=== PATIENT | female | born 2005 | race Caucasian/White ===

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

== ENCOUNTER 2024-01-04 16:58 | Emergency (ER) | payer SELFPAY ==
[2024-01-04] MEDS: Haloperidol Lactate 5 MG/ML SDV IM ONE (17:52)
[2024-01-04 18:28] LABS: BASOPHILS ABSOLUTE AUTO 0.04 K/uL (0.00-0.20); BASOPHILS PERCENT AUTO 0.5 % (0.0-1.0); EOSINOPHILS ABSOLUTE AUTO 0.02 K/uL (0.00-0.45); EOSINOPHILS PERCENT AUTO 0.3 % (0.0-6.0); HEMATOCRIT 32.6 % (37.0-47.0); HEMOGLOBIN 9.9 g/dL (12.0-16.0); IMMATURE GRAN ABSOLUTE AUTO 0.03 K/uL (0.00-0.05); IMMATURE GRAN PERCENT AUTO 0.4 % (0.0-0.4); LYMPHOCYTES ABSOLUTE AUTO 1.09 K/uL (1.00-4.80); LYMPHOCYTES PERCENT AUTO 14.6 % (24.0-44.0); MEAN CORPUSCULAR HEMOGLOBIN 21.4 pg (28.0-32.0); MEAN CORPUSCULAR HGB CONC 30.4 g/dL (32.0-36.0); MEAN CORPUSCULAR VOLUME 70.4 fL (83.0-99.0); MEAN PLATELET VOLUME 9.9 fL (9.4-12.3); MONOCYTES ABSOLUTE AUTO 0.61 K/uL (0.00-0.80); MONOCYTES PERCENT AUTO 8.2 % (0.0-8.0); NEUTROPHILS ABSOLUTE AUTO 5.68 K/uL (1.80-7.70); PLATELET COUNT,PLT 290 K/uL (150-400); RED BLOOD CELL COUNT 4.63 M/uL (4.10-5.30); WHITE BLOOD CELL COUNT,WBC 7.47 K/uL (3.9-11.3)
[2024-01-04 19:01] LABS: A/G RATIO 1.2 (0.9-1.6); ACETAMINOPHEN <2.0 ug/mL; ALANINE AMINOTRANSFERASE,ALT 16 IU/L (14-63); ALBUMIN 4.1 g/dL (3.4-5.0); ALKALINE PHOSPHATASE 68 U/L (46-116); ASPARTATE AMNIOTRANSFERASE,AST 13 IU/L (15-37); BILIRUBIN TOTAL 0.3 mg/dL (0.2-1.0); BLOOD UREA NITROGEN,BUN 8 mg/dL (7.0-18.0); CALCIUM 8.9 mg/dL (8.5-10.1); CARBON DIOXIDE,CO2 26.1 mmol/L (21.0-32.0); CHLORIDE,CL 105 mmol/L (98-107); CREATININE 0.8 mg/dL (0.6-1.0); EST CRCL DRUG DOSING (CG) 64.26 mL/min; ESTIMATED GFR 108 mL/min (>60); ETHANOL BLOOD MEDICAL <3 mg/dL; GLUCOSE RANDOM 107 mg/dL (74-106); MAGNESIUM 2.1 mg/dL (1.8-2.4); POTASSIUM,K 3.3 mmol/L (3.5-5.1); PROTEIN TOTAL,TP 7.5 g/dL (6.4-8.2); SALICYLATE 0.2 mg/dL (0.0-20.0); SODIUM,NA 141 mmol/L (136-145); TSH ULTRASENSITIVE 2.12 uIU/mL (0.36-3.74)
[2024-01-04] MEDS: diphenhydrAMINE 50 MG/ML SDV IM ONE (20:27)
[2024-01-04] MEDS: OLANZapine 5 MG in Water For Injection, Sterile 2.1 ML IM ONE (20:27)
[2024-01-04] MEDS: LORazepam 2 MG/ML SDV IM ONE (20:28)
[2024-01-04 23:12] LABS: BILIRUBIN,URINE NEGATIVE (NEGATIVE); COLOR,URINE YELLOW; GLUCOSE,URINE NEGATIVE (NEGATIVE); KETONES,URINE NEGATIVE (NEGATIVE); LEUKOCYTE ESTERASE,URINE NEGATIVE (NEGATIVE); NITRITE,URINE POSITIVE (NEGATIVE); OCCULT BLOOD,URINE NEGATIVE (NEGATIVE); PROTEIN,URINE NEGATIVE (NEGATIVE); UROBILINOGEN,URINE 0.2 EU/dL (<2.0)
[2024-01-04 23:21] LABS: AMPHETAMINES SCREEN, URINE PRESUMPTIVE POSITIVE (CUTOFF=500); BARBITURATE SCREEN,URINE NEGATIVE (CUTOFF=200); BENZODIAZEPINES SCREEN,URINE NEGATIVE (CUTOFF=150); BUPRENORPHINE SCREEN,URINE NEGATIVE (CUTOFF=10); METHADONE SCREEN, URINE NEGATIVE (CUTOFF=200); METHAMPHETAMINES SCREEN, URINE PRESUMPTIVE POSITIVE (CUTOFF=500); OXYCODONE SCREEN,URINE NEGATIVE (CUT0FF=100); PCP SCREEN,URINE NEGATIVE (CUTOFF=25); THC SCREEN,URINE 20 NG/ML NEGATIVE (CUTOFF=50)
[2024-01-04 23:23] LABS: APPEARANCE,URINE HAZY; BACTERIA,URINE 3+ (NEGATIVE); EPITHELIAL CELLS,URINE FEW (NONE-FEW); RBC,URINE 0-1 (0-2/HPF); WBC,URINE 0-5 (0-5/HPF)
[2024-01-05] MEDS: Nitrofurantoin Monohydrate/Macrocrystalline 100 MG Cap PO SCH (00:54)
== END 2024-01-05 11:25 ==
LOC: MW.ED 16:58
DX: F23 Brief psychotic disorder (principal); N30.00 Acute cystitis without hematuria; F15.10 Other stimulant abuse, uncomplicated; Z75.8 Other problems related to medical facilities and other health care
CPT/HCPCS: 36415; 80053; 80143; 80179; 80305; 80307; 81001; 81025; 83735; 84443; 85025; 87086; 87088; 87186; 93005; 96372; 99285; A9270; J1200; J1630; J2060; J2405; 93010; J3490

== ENCOUNTER 2024-09-07 19:59 | Emergency (ER) | payer MEDICAID ==
[2024-09-07] MEDS: OLANZapine 5 MG Tab.DIS PO STA (21:32)
[2024-09-08 00:16] LABS: A/G RATIO 1.2 (0.9-1.6); ALANINE AMINOTRANSFERASE,ALT 23 IU/L (14-63); ALBUMIN 4.1 g/dL (3.4-5.0); ALKALINE PHOSPHATASE 64 U/L (46-116); ASPARTATE AMNIOTRANSFERASE,AST 19 IU/L (15-37); BILIRUBIN TOTAL 0.2 mg/dL (0.2-1.0); BLOOD UREA NITROGEN,BUN 13 mg/dL (7.0-18.0); CALCIUM 8.7 mg/dL (8.5-10.1); CARBON DIOXIDE,CO2 26.8 mmol/L (21.0-32.0); CHLORIDE,CL 102 mmol/L (98-107); CREATININE 0.6 mg/dL (0.6-1.0); ETHANOL BLOOD MEDICAL <3 mg/dL; GLUCOSE RANDOM 94 mg/dL (74-106); POTASSIUM,K 3.7 mmol/L (3.5-5.1); PROTEIN TOTAL,TP 7.4 g/dL (6.4-8.2); SALICYLATE 0.7 mg/dL (0.0-20.0); SODIUM,NA 138 mmol/L (136-145); TSH ULTRASENSITIVE 1.61 uIU/mL (0.36-3.74)
[2024-09-08 00:18] LABS: ESTIMATED GFR 132 mL/min (>60)
[2024-09-08 06:25] LABS: ACETAMINOPHEN <2.0 ug/mL
== END 2024-09-07 21:40 | disposition home or self-care (01) ==
LOC: MW.ED 19:59
DX: R46.2 Strange and inexplicable behavior (principal); Z75.8 Other problems related to medical facilities and other health care
CPT/HCPCS: 36415; 80053; 80143; 80179; 80307; 83735; 84443; 99284; A9270; 99283

== ENCOUNTER 2024-09-21 12:34 | Emergency (ER) | payer MEDICAID | END 2024-09-21 13:31 | disposition home or self-care (01) | LOC: MW.ED 12:34 | DX: L30.9 Dermatitis, unspecified (principal); Z79.899 Other long term (current) drug therapy | CPT/HCPCS: 99282; 99283 ==